=== PATIENT | male | born 1980 | race Caucasian/White ===

== ENCOUNTER 2017-01-27 15:19 | Emergency (ER) | payer MEDICAID, OTHER ==
[~2017-01-27] VITALS: Ht 167.6 cm; Wt 87.0 kg
[2017-01-27 15:31] VITALS: Ht 167.6 cm; Wt 87.0 kg
--- NOTE | 2017-01-27 15:39 | ERA ---
ER Documentation Chief Complaint Date/Time DATE: 01/27/17 TIME: 15:39 Chief Complaint HIGH BLOOD PRESSURE,FEELING TIRED HPI The patient is a 36-year-old male, presenting with feeling of the heat and the head and tired for the last couple days. He has not been taking his antihypertensive medication for more than a month. He denies headache, syncope , near syncope, dizziness, neck pain, chest pain, abdominal pain, vomiting, dysuria, diarrhea. He smokes socially, denies drinking or using illicit drug Past medical history: Hypertension Past surgical history: None ROS All systems reviewed and are negative except as per history of present illness. Medications Home Meds Discontinued Reported Medications [cholesterol] No Conflict Check, PO DAILY 01/27/17 Allergies Allergies: Coded Allergies: No Known Allergy (Unverified , 01/27/17) Physical Exam Vitals Vital Signs Date Time Temp Pulse Resp B/P Pulse Ox O2 Delivery O2 Flow Rate FiO2 01/27/17 18:08 90 20 154/112 99 Room Air 01/27/17 17:28 84 20 177/117 99 Room Air 01/27/17 17:13 94 20 181/129 99 Room Air 01/27/17 15:31 99.1 119 20 268/161 99 Physical Exam Const: No acute distress. Head: Atraumatic. Eyes: Normal Conjunctiva. ENT: Normal External Ears, Nose and Mouth. Neck: Full range of motion. No meningismus. Resp: Clear to auscultation bilaterally. Cardio: Regular rate and rhythm, no murmurs. Abd: Soft, non distended, normal bowel sounds, non tender. Skin: No petechiae or rashes. Back: No midline or flank tenderness. Ext: No cyanosis, or edema. Neur: Awake and alert. No focal deficit Psych: Normal Mood and Affect. Result Diagram: 01/27/17 1545 01/27/17 1545 Results 24 hrs Laboratory Tests Test 01/27/17 15:45 White Blood Count 7.810^3/ul Red Blood Count 5.0110^6/ul Hemoglobin 13.8g/dl Hematocrit 40.8% Mean Corpuscular Volume 81.4fl Mean Corpuscular Hemoglobin 27.5pg Mean Corpuscular Hemoglobin Concent 33.8g/dl Red Cell Distribution Width 12.4% Platelet Count 95273^3/UL Mean Platelet Volume 10.6fl Neutrophils % 62.5% Lymphocytes % 30.1% Monocytes % 6.0% Eosinophils % 0.8% Basophils % 0.3% Nucleated Red Blood Cells % 0.0/100WBC Neutrophils # 4.910^3/ul Lymphocytes # 2.410^3/ul Monocytes # 0.510^3/ul Eosinophils # 0.110^3/ul Basophils # 0.010^3/ul Nucleated Red Blood Cells # 0.010^3/ul Prothrombin Time 12.4Sec Prothrombin Time Ratio 1.0 INR International Normalized Ratio 0.92 Activated Partial Thromboplast Time 24.8Sec Sodium Level 138mmol/L Potassium Level 2.8mmol/L Chloride Level 97mmol/L Carbon Dioxide Level 28mmol/L Anion Gap 16 Blood Urea Nitrogen 16mg/dl Creatinine 1.04mg/dl Glucose Level 144mg/dl Calcium Level 9.2mg/dl Magnesium Level 2.1mg/dl Ethyl Alcohol Level < 10.0mg/dl Current Medications Medications (Trade) Dose Ordered Sig/Gustavo Route PRN Reason Start Time Stop Time Status Last Admin Dose Admin Labetalol HCl (Labetalol) 20 mg ONCE ONCE IV 01/27/17 16:00 01/27/17 16:01 DC 01/27/17 16:13 Labetalol HCl (Labetalol) 40 mg ONCE ONCE IV 01/27/17 16:30 01/27/17 16:31 DC 01/27/17 16:27 Labetalol HCl (Labetalol) 40 mg ONCE ONCE IV 01/27/17 17:00 01/27/17 17:01 DC 01/27/17 16:52 Potassium Chloride (Klor-Con 20) 40 meq ONCE STAT PO 01/27/17 16:45 01/27/17 16:47 DC 01/27/17 16:51 Potassium Chloride (Klor-Con 20) 20 meq ONCE STAT PO 01/27/17 16:45 01/27/17 16:47 DC 01/27/17 16:51 Hydralazine HCl (Apresoline) 10 mg ONCE ONCE IV 01/27/17 17:30 01/27/17 17:31 DC 01/27/17 17:26 Amlodipine Besylate (Norvasc) 10 mg ONCE ONCE PO 01/27/17 17:30 01/27/17 17:31 DC 01/27/17 17:35 Procedures/MDM [place] [id number] Radiology Main Line: [phone] DIAGNOSTIC IMAGING REPORT Patient: YENNY DISLA : 1980 Age: 36 Sex: M MR #: [id number] DOS: 01/27/17 1540 Ordering MD: KARY NGUYEN MD Location: E/R Room/Bed: AMENDMENT: 01/27/2017 4:54:15 PM Reid Gunn M.d Near complete opacification of the right sphenoid sinus is seen. The remaining paranasal sinuses are well pneumatized. PROCEDURE: CT Head without contrast. CLINICAL INDICATION: Headaches TECHNIQUE: The study was performed utilizing a GE 64-slice multidetector CT scanner. Direct spiral axial CT images of the brain were obtained from the vertex to the skull base without contrast. Coronal and sagittal reformat images are provided. The CTDI vol is 44.46 mGy and the DLP is 720.23 mGy-cm. The images were reviewed on a PACS workstation. COMPARISON: No prior studies are available for comparison. FINDINGS: The ventricles and cortical sulci are within normal limits. A focal area of low attenuation in the left acosta radiata is seen measuring 6 mm in size. High density material in the left frontal lobe is seen in the subcortical region measuring 3 mm in size. The lacy-white matter differentiation is maintained. No intra or extra-axial fluid collection or mass effect or shift in the midline structures is seen. The visualized paranasal sinuses, mastoid air cells, orbits , and calvarium are unremarkable. IMPRESSION: 1. No acute intracranial pathology. 2. Small prominent perivascular space which is lacunar infarct in the left acosta radiata. 3. Small left frontal lobe calcification which may be from prior cysticercosis. RPTAT: HPNM Physician Chaz Date Time Electronically viewed and signed by Physician Chaz on 01/27/2017 16 :54 / CC: KARY NGUYEN MD MEDICAL MAKING DECISION: The patient is a 36-year-old male, presenting with acute accelerated hypertension due to medical noncompliance, acute hypokalemia. He was treated with labetalol 20 mg IV, 40 mg IV, 40 mg IV, hydralazine 10 mg IV over many hours for acute accelerated hypertension, potassium chloride 60 mEq p.o. for low potassium with good response The differential diagnoses considered include but are not limited to subarachnoid hemorrhage, occult trauma, CVA, meningitis, encephalitis, hypertension, tension, migraine, cluster, narcotic withdrawal, cervical spine disease. Departure Diagnosis: Primary Impression: Accelerated hypertension Additional Impressions: Hypokalemia Anemia Condition: Good Comments He was discharged with Norvasc 10 mg daily I discussed the findings with the patient. I advised the patient to follow-up with the primary physician in about 1-2 days, sooner if needed and return if any concern. KARY NGUYEN MD Jan 27, 2017 15:39
[2017-01-27 16:00] LABS: ADD SCAN DIFF NO
[2017-01-27] MEDS ORDERED: LABETALOL HCL 20MG INJ IV ONE ×3 (16:00→17:00)
[2017-01-27] MEDS ORDERED: cholesterol PO (16:04)
[2017-01-27 16:06] LABS: BASOPHILS % 0.3 % (0.0-2.0); EOSINOPHILS # 0.1 10^3/ul (0.0-0.5); EOSINOPHILS % 0.8 % (0.0-7.0); HEMATOCRIT 40.8 % (42.0-52.0); HEMOGLOBIN 13.8 g/dl (14.0-18.0); LYMPHOCYTES # 2.4 10^3/ul (0.8-2.9); LYMPHOCYTES % 30.1 % (15.0-51.0); MEAN CORPUSCULAR HEMOGLOBIN 27.5 pg (29.0-33.0); MEAN CORPUSCULAR HGB CONC 33.8 g/dl (32.0-37.0); MEAN CORPUSCULAR VOLUME 81.4 fl (82.0-101.0); MEAN PLATELET VOLUME 10.6 fl (7.4-10.4); MONOCYTE # 0.5 10^3/ul (0.3-0.9); NEUTROPHIL # 4.9 10^3/ul (1.6-7.5); NEUTROPHILS % 62.5 % (39.0-77.0); PLATELET COUNT 254 10^3/UL (140-415); RED BLOOD COUNT 5.01 10^6/ul (4.70-6.10); RED CELL DISTRIBUTION WIDTH 12.4 % (11.5-14.5); WHITE BLOOD COUNT 7.8 10^3/ul (4.8-10.8)
--- NOTE | 2017-01-27 16:10 | RADRPT ---
AMENDMENT: 01/27/2017 4:54:15 PM Reid Gunn M.d Near complete opacification of the right sphenoid sinus is seen. The remaining paranasal sinuses ar e well pneumatized. PROCEDURE: CT Head without contrast. CLINICAL INDICATION: Headaches TECHNIQUE: The study was performed utilizing a GE 64-slice multidetector CT scanner. Direct spiral axial CT images of the brain were obtained from the vertex to the skull base without contrast. Cor onal and sagittal reformat images are provided. The CTDI vol is 44.46 mGy and the DLP is 720.23 mGy -cm. The images were reviewed on a PACS workstation. COMPARISON: No prior studies are available for comparison. FINDINGS: The ventricles and cortical sulci are within normal limits. A focal area of low attenuation in the l eft acosta radiata is seen measuring 6 mm in size. High density material in the left frontal lobe i s seen in the subcortical region measuring 3 mm in size. The lacy-white matter differentiation is ma intained. No intra or extra-axial fluid collection or mass effect or shift in the midline structure s is seen. The visualized paranasal sinuses, mastoid air cells, orbits, and calvarium are unremarka ble. IMPRESSION: 1. No acute intracranial pathology. 2. Small prominent perivascular space which is lacunar infarct in the left acosta radiata. 3. Small left frontal lobe calcification which may be from prior cysticercosis. RPTAT: HPNM Physician Chaz Date Time Electronically viewed and signed by Physician Chaz on 01/27/2017 16:54 /
[2017-01-27 16:21] LABS: CHLORIDE 97 mmol/L (97-110); SODIUM 138 mmol/L (135-144)
[2017-01-27 16:22] LABS: INR 0.92; PROTIME 12.4 Sec (12.2-14.2)
[2017-01-27 16:23] LABS: PARTIAL THROMBOPLASTIN TIME 24.8 Sec (25.0-35.0)
[2017-01-27 16:24] LABS: ANION GAP 16 (8-16); CARBON DIOXIDE 28 mmol/L (21-31); CREATININE 1.04 mg/dl (0.61-1.24)
[2017-01-27 16:25] LABS: BLOOD UREA NITROGEN 16 mg/dl (7-20); CALCIUM 9.2 mg/dl (8.4-10.2); GLUCOSE 144 mg/dl (70-220)
[2017-01-27 16:29] LABS: ETHANOL < 10.0 mg/dl; POTASSIUM 2.8 mmol/L (3.5-5.1)
[2017-01-27] MEDS ORDERED: POTASSIUM CHLORIDE (SR) 20 MEQ TAB PO STA ×2 (16:45)
[2017-01-27] MEDS ORDERED: AMLODIPINE 10 MG TAB PO ONE (17:30)
[2017-01-27] MEDS ORDERED: hydrALAzine 20 MG INJ IV ONE (17:30)
[2017-01-27] MEDS ORDERED: AMLO-218 PO (18:29)
[2017-01-27 19:07] VITALS: BP 144/98; PULSE 78; RESP 16; TEMP 98.1
== END 2017-01-27 19:08 | disposition home or self-care (01) ==
LOC: E/R 15:19
DX: I10 Essential (primary) hypertension (principal); E87.6 Hypokalemia; D64.9 Anemia, unspecified; R51 Headache
CPT/HCPCS: 70450; 80048; 80306; 83735; 85025; 85610; 85730; 96374; 96375; 96376; J0360; Z7502; Z7610